=== PATIENT | male | born 1990 | race Asian ===

== ENCOUNTER 2016-11-27 22:11 | Emergency (ER) | payer BC ==
[~2016-11-27] VITALS: Ht 167.6 cm; Wt 70.3 kg
[2016-11-27 22:48] VITALS: BP 148/79
--- NOTE | 2016-11-28 00:50 | NUR ---
PT IS 26/M BIB [facility] TO ED WITH C/O RT SHOULDER PAIN X 1 DAY. PT STATES NO MED HX. DENIES N/V/D; SKIN IS PINK/WARM/DRY; AAOX4 WITH EVEN AND STEADY GAIT; LUNGS CLEAR BL; HR EVEN AND REGULAR; PT DENIES ANY FEVER, CP, SOB, OR COUGH AT THIS TIME; PATIENT STATES PAIN OF 8/10 AT THIS TIME; VSS; PATIENT POSITIONED FOR COMFORT; HOB ELEVATED; BEDRAILS UP X2; BED DOWN. ER MD MADE AWARE OF PT STATUS.
--- NOTE | 2016-11-28 00:50 | NUR ---
AMBULATED TO ER OF1
--- NOTE | 2016-11-28 00:51 | NUR ---
Patient being evaluated by physician.
[2016-11-28] MEDS ORDERED: IBUPROFEN 600 MG TAB PO ONE (00:55)
[2016-11-28 01:16] VITALS: BP 136/72
--- NOTE | 2016-11-28 01:16 | NUR ---
Patient discharged with v/s stable. Written and verbal after care instructions given and explained. Patient alert, oriented and verbalized understanding of instructions. Ambulatory with steady gait. All questions addressed prior to discharge. ID band removed. Patient advised to follow up with PMD. Rx of NAPROSYN AND TYLENOL WITH CODEINE given. Patient educated on indication of medication including possible reaction and side effects. Opportunity to ask questions provided and answered.
== END 2016-11-28 01:16 | disposition home or self-care (01) ==
LOC: MED 22:11
DX: S46.011D Strain of muscle(s) and tendon(s) of the rotator cuff of right shoulder, subsequent encounter (principal); R03.0 Elevated blood-pressure reading, without diagnosis of hypertension; X58.XXXD Exposure to other specified factors, subsequent encounter
CPT/HCPCS: 73030; 99284

== ENCOUNTER 2017-06-02 22:05 | Emergency (ER) | payer BC ==
[~2017-06-02] VITALS: Ht 167.6 cm; Wt 68.0 kg
[2017-06-02 22:09] VITALS: BP 129/67
--- NOTE | 2017-06-02 22:45 | NUR ---
Patient ambulated to bed 08.
[2017-06-02 22:48] LABS: APPEARANCE,URINE CLEAR (CLEAR); BILIRUBIN,URINE NEGATIVE (NEGATIVE); BLOOD, URINE NEGATIVE (NEGATIVE); COLOR,URINE YELLOW (YELLOW); LEUKOCYTE ESTERASE ,URINE NEGATIVE (NEGATIVE); NITRITE, URINE NEGATIVE (NEGATIVE); UGLUCOSE NEGATIVE (NEGATIVE)
--- NOTE | 2017-06-02 22:57 | NUR ---
PATIENT PRESENTS TO ED WITH C/O SCROTAL PAIN WITH LOWER ABDOMINAL PAIN X 3 DAYS. ALSO STATES FEVER ON AND OFF X 1 WK. MOTRIN 600 MG AT 1100AM. HX. PROSTATITIS 2 WKS AGO DONE WITH AMOXICILLIN AND AZITHROMYCIN; DENIES N/V/D; SKIN IS PINK/WARM/DRY; AAOX4 WITH EVEN AND STEADY GAIT; LUNGS CLEAR BL; HR EVEN AND REGULAR; PT DENIES ANY FEVER, CP, SOB, OR COUGH AT THIS TIME; PATIENT STATES PAIN OF 8/10 AT THIS TIME; VSS; PATIENT POSITIONED FOR COMFORT; HOB ELEVATED; BEDRAILS UP X2; BED DOWN. ER MD MADE AWARE OF PT STATUS.
[2017-06-02] MEDS ORDERED: KETOROLAC 60 MG/2 ML VIAL IM ONE (23:50)
[2017-06-03] MEDS ORDERED: traMADol 50 MG TAB PO ONE
--- NOTE | 2017-06-03 00:10 | NUR ---
late entry; Toradol 60mg given im
--- NOTE | 2017-06-03 00:51 | NUR ---
US tech at bedside.
--- NOTE | 2017-06-03 01:20 | NUR ---
GOT REPORT FROM CALOS, PT. RESTING IN BED, NO S/SX OF DITRESS AT THIS TIME.
[2017-06-03] MEDS ORDERED: HYDROcodone/APAP 5/325 MG 1 TAB TAB PO ONE (02:20)
[2017-06-03 02:40] VITALS: BP 122/79
--- NOTE | 2017-06-03 02:40 | NUR ---
Patient discharged with v/s stable. Written and verbal after care instructions given and explained. Patient alert, oriented and verbalized understanding of instructions. Ambulatory with steady gait. All questions addressed prior to discharge. ID band removed. Patient advised to follow up with PMD. Rx of NORCO 5/325 MG given. Patient educated on indication of medication including possible reaction and side effects. Opportunity to ask questions provided and answered.
[2017-06-06 06:56] LABS: CHLAMYDIA TRACHOMATIS AMP DNA Negative (Negative)
== END 2017-06-03 02:40 | disposition home or self-care (01) ==
LOC: MED 22:05
DX: N40.1 Benign prostatic hyperplasia with lower urinary tract symptoms (principal); R03.0 Elevated blood-pressure reading, without diagnosis of hypertension; R35.0 Frequency of micturition
CPT/HCPCS: 36415; 76870; 81003; 87491; 96372; 99285; J1885; Q0092

== ENCOUNTER 2018-06-09 22:23 | Emergency (ER) | payer SELFPAY ==
[~2018-06-09] VITALS: Ht 167.6 cm; Wt 74.8 kg
[2018-06-09 22:27] VITALS: BP 134/90
[2018-06-09] MEDS ORDERED: IBUPROFEN 600 MG TAB PO ONE (23:35)
[2018-06-09] MEDS ORDERED: ACETAMINOPHEN EXTRA STRENGTH 500 MG TAB PO ONE (23:35)
[2018-06-10 00:08] VITALS: BP 133/87
== END 2018-06-10 00:08 | disposition home or self-care (01) ==
LOC: MED 22:23
DX: S93.601A Unspecified sprain of right foot, initial encounter (principal); W20.8XXA Other cause of strike by thrown, projected or falling object, initial encounter; Y93.89 Activity, other specified; Y92.89 Other specified places as the place of occurrence of the external cause; Y99.8 Other external cause status
CPT/HCPCS: 73660; 99284